=== PATIENT | male | born 1980 | race Caucasian/White ===

== ENCOUNTER 2016-12-01 01:15 | Observation (INO) | payer BC ==
[~2016-12-01] VITALS: Ht 182.9 cm; Wt 111.8 kg
[~2016-12-01 01:15] MED LIST: CLARITIN,ALAVAR10 MG PO; FLONASE16 G1 BOTH NARES; IRBESARTAN-HCT1 EAC1 PO
[2016-12-01 01:49] LABS: HEMATOCRIT 46.9 % (38.0-50.0); MCH 28.8 PG (29.0-34.0); MCHC 35.4 G/DL (30.0-36.0); MCV 81.4 FL (86-99); MEAN PLAT.VOLUME 9.7 uM^3 (9.0-12.4); PLATELET COUNT 305 K/uL (156-360); RBC DIS.WIDTH-CV 13.9 % (11.8-14.6); RBC DIS.WIDTH-SD 40.4 % (39-53); RED BLOOD COUNT 5.76 M/uL (4.00-5.50); WHITE BLOOD COUNT 17.3 K/uL (4.1-10.2)
[2016-12-01 02:07] LABS: CHLORIDE 106 mEq/L (99-109); POTASSIUM 3.8 mEq/L (3.7-5.4); SODIUM 137 mEq/L (136-147)
[2016-12-01 02:09] LABS: GLUCOSE 89 mg/dL (70-99); TROP-I INTERPRETATION NEGATIVE; TROPONIN-I < 0.01 ng/mL (0.0-0.30)
[2016-12-01 02:10] LABS: ANION GAP 10 MEQ/L (2-14); PROTHROMBIN TIME 9.9 (9.2-11.2); PTT 35.8 (25-32)
[2016-12-01 02:13] LABS: GFR ESTIMATE (CALCULATED) 57 mL/min/; UREA NITROGEN (BUN) 28 mg/dL (9-23)
[2016-12-01] MEDS ORDERED: AMLODIPINE BESYL5 MG PO (03:16)
[2016-12-01] MEDS ORDERED: VALSARTAN320 MG PO (03:16)
[2016-12-01 03:58] VITALS: BP 130/83
[2016-12-01 08:31] VITALS: BP 113/69
[2016-12-01 09:39] LABS: TROP-I INTERPRETATION NEGATIVE; TROPONIN-I 0.01 ng/mL (0.0-0.30)
[2016-12-01 11:53] VITALS: BP 128/68
[2016-12-01] MEDS ORDERED: METOPROLOL SUCC50 MG PO (13:54)
== END 2016-12-01 14:37 | disposition home or self-care (01) ==
LOC: EME 01:15 → EDOF 02:46 → 5WEST 03:44
PROVIDERS: Emergency Medicine; Physician Assistant
DX: R07.9 Chest pain, unspecified (principal); R00.2 Palpitations; I47.1 Supraventricular tachycardia; D72.829 Elevated white blood cell count, unspecified; N17.9 Acute kidney failure, unspecified; I10 Essential (primary) hypertension; E78.5 Hyperlipidemia, unspecified; E66.9 Obesity, unspecified; Z68.33 Body mass index [BMI] 33.0-33.9, adult; Z82.49 Family history of ischemic heart disease and other diseases of the circulatory system; Z88.2 Allergy status to sulfonamides
CPT/HCPCS: 71010; 80048; 84484; 85027; 85610; 85730; 93005; 99281; 99285; G0378; J0153; J7030